=== PATIENT | female | born 1985 | race Caucasian/White ===

== ENCOUNTER 2017-10-03 18:02 | Emergency (ER) | payer SELFPAY ==
[~2017-10-03] VITALS: Ht 170.2 cm; Wt 59.0 kg
--- NOTE | 2017-10-03 19:13 | NUR ---
Assumed care of patient. No acute distress noted.
--- NOTE | 2017-10-03 20:13 | NUR ---
Patient discharged to home in stable conditon. Written and verbal after care instructions given. Patient verbalizes understanding of instructions. Ambulated from ER with stable gait. Neurovascular status WNL to right knee s/p carlos wrap. Ambulated with stable gait using crutches. No acute distress noted. All belongings with patient.
[2017-10-03 20:14] VITALS: BP 112/61
== END 2017-10-03 20:15 | disposition home or self-care (01) ==
LOC: ER 18:10
DX: S83.91XA Sprain of unspecified site of right knee, initial encounter (principal); X50.9XXA Other and unspecified overexertion or strenuous movements or postures, initial encounter; Y93.22 Activity, ice hockey; Y92.89 Other specified places as the place of occurrence of the external cause; Y99.8 Other external cause status
CPT/HCPCS: A4663